=== PATIENT | female | born 1950 | race Caucasian/White ===

== ENCOUNTER 2017-12-12 12:09 | Outpatient (CLI) | payer MEDICARE, BC ==
[2017-12-12 13:24] LABS: BASOPHILS # (AUTO) 0.1 X10'3 (0-0.2); BASOPHILS % (AUTO) 1.6 % (0-1); EOSINOPHILS # (AUTO) 0.4 X10'3 (0-0.9); EOSINOPHILS % (AUTO) 7.6 % (0-6); HEMATOCRIT 37.8 % (35.0-45.0); HEMOGLOBIN 12.8 g/dl (12.0-16.0); LYMPHOCYTES # (AUTO) 1.6 X10'3 (1.1-4.8); LYMPHOCYTES % (AUTO) 33.2 % (21-51); MEAN CORPUSCULAR HEMOGLOBIN 30.8 PG (27.0-31.0); MEAN CORPUSCULAR HGB CONC 33.9 % (33.0-36.5); MEAN PLATELET VOLUME 10.3 FL (7.4-10.4); MONOCYTES # (AUTO) 0.4 X10'3 (0-0.9); MONOCYTES % (AUTO) 7.6 % (2-12); NEUTROPHILS # (AUTO) 2.4 X10'3 (1.8-7.7); PLATELET COUNT 240 X10'3 (140-440); RED BLOOD COUNT 4.15 X10'6 (4.20-5.60); RED CELL DISTRIBUTION WIDTH 13.3 % (11.5-14.5); WHITE BLOOD COUNT 4.7 X10'3 (4.5-11.0)
[2017-12-12 13:42] LABS: ALANINE AMINOTRANSFERASE 18 U/L (12-78); ALBUMIN 3.8 G/DL (3.4-5.0); ALKALINE PHOSPHATASE 64 IU/L (46-116); ANION GAP 7 (8-16); ASPARTATE AMINO TRANSFERASE 21 U/L (10-37); BILIRUBIN,TOTAL 0.5 MG/DL (0.1-1.0); BLOOD UREA NITROGEN 9 MG/DL (7-18); BUN/CREATININE RATIO 12.3 (6.6-38.0); CALCIUM 8.8 MG/DL (8.5-10.1); CHLORIDE 105 MMOL/L (99-107); CREATININE 0.73 MG/DL (0.40-0.90); GLUCOSE 91 MG/DL (70-104); SODIUM 143 MMOL/L (135-145); TOTAL PROTEIN 7.5 G/DL (6.4-8.2); eGFR 79 ML/MIN
== END 2017-12-12 23:59 | disposition home or self-care (01) ==
LOC: LAB 12:09
PROVIDERS: ATTEND Specialist
DX: Z01.818 Encounter for other preprocedural examination (principal); Z51.81 Encounter for therapeutic drug level monitoring; N39.0 Urinary tract infection, site not specified; Z87.891 Personal history of nicotine dependence
CPT/HCPCS: 36415; 80053; 85025; 85610; 87070

== ENCOUNTER 2018-04-29 10:37 | Inpatient (IN) | payer MEDICARE, BC ==
[2018-04-25 12:50] LABS: BASOPHILS % (AUTO) 0.6 % (0-1); EOSINOPHILS # (AUTO) 0.3 X10'3 (0-0.9); EOSINOPHILS % (AUTO) 5.9 % (0-6); LYMPHOCYTES # (AUTO) 1.8 X10'3 (1.1-4.8); LYMPHOCYTES % (AUTO) 33.9 % (21-51); MEAN CORPUSCULAR HEMOGLOBIN 29.2 PG (27.0-31.0); MEAN CORPUSCULAR VOLUME 88.6 FL (78-98); MEAN PLATELET VOLUME 9.9 FL (7.4-10.4); MONOCYTES # (AUTO) 0.5 X10'3 (0-0.9); MONOCYTES % (AUTO) 9.1 % (2-12); NEUTROPHILS # (AUTO) 2.8 X10'3 (1.8-7.7); NEUTROPHILS % (AUTO) 50.5 % (42-75); PRE OP HEMATOCRIT 37.6 % (35.0-45.0); PRE OP HEMOGLOBIN 12.4 g/dL (12.0-16.0); PRE OP PLATELET COUNT 266 X10'3 (140-440); RED BLOOD COUNT 4.24 X10'6 (4.20-5.60); RED CELL DISTRIBUTION WIDTH 14.6 % (11.5-14.5)
[2018-04-25 12:51] LABS: CLARITY,URINE CLEAR (Clear); COLOR,URINE YELLOW (Yellow); GLUCOSE, URINE NEGATIVE (Neg); KETONES,URINE NEGATIVE (Neg); LEUKOCYTE ESTERASE ,URINE NEGATIVE (Neg); NITRITES, URINE NEGATIVE (Neg); OCCULT BLOOD,URINE NEGATIVE (Neg); PH,URINE 5.5 (4.8-8.0); PROTEIN,URINE NEGATIVE (Neg); UROBILINOGEN,URINE 0.2 E.U/dL (0.2-1.0)
[2018-04-25 12:52] LABS: UA COLLECTION TYPE CLN CATCH MIDSTREAM
[2018-04-25 13:09] LABS: ALBUMIN 3.8 G/DL (3.4-5.0); ALKALINE PHOSPHATASE 67 IU/L (46-116); BLOOD UREA NITROGEN 11 MG/DL (7-18); BUN/CREATININE RATIO 16.7 (6.6-38.0); CALCIUM 8.6 MG/DL (8.5-10.1); CHLORIDE 102 MMOL/L (99-107); CREATININE 0.66 MG/DL (0.40-0.90); PRE OP ALT 19 U/L (30-65); PRE OP ANION GAP 6 (8-16); PRE OP AST 15 U/L (10-37); PRE OP BILIRUB, TOTAL 0.4 MG/DL (0.0-1.0); PRE OP GLUCOSE 84 MG/DL (70-104); PRE OP POTASSIUM 4.1 MMOL/L (3.4-5.1); PRE OP SODIUM 140 MMOL/L (135-145); TOTAL CARBON DIOXIDE 32.4 MMOL/L (24-32); TOTAL PROTEIN 7.6 G/DL (6.4-8.2); eGFR 89 ML/MIN
[~2018-04-29] VITALS: Ht 167.6 cm; Wt 70.4 kg
[2018-04-29] VITALS (15 sets, daily range): BP systolic 103–121; BP diastolic 50–73
[~2018-04-29 10:37] MED LIST: ALEN70TA13 PO; ATOR20TA PO; CALC600T69 PO; CHOL100046 PO; DOCU50CA13 PO; FERR-119 PO; LEVO137T24 PO; MULT-933 PO; SOTA80TA73 PO; acetaminophen 325mg tablet PO ONE; cefazolin/dext.iso 2gm/100 ML IV ONE; celeCOXIB 100mg capsule PO ONE; famotidine 20mg tablet PO ONE; gabapentin 300mg capsule PO ONE; oxyCODONE SR 10mg (sust. release) tab -2 tabs (20mg) PO ONE; ringers solution, lacted 1,000 ML IV SCH; tranexamic acid inj. 1,500 MG in normal saline 100ml IV soln 100 ML IV ONE
[2018-04-29] MEDS ORDERED: cloNIDine hcl/PF 100mcg/ml inj ONE (12:50)
[2018-04-29] MEDS ORDERED: dexamethasone sod phosphate 10mg/ml inj ONE (12:50)
[2018-04-29] MEDS ORDERED: ePHEDrine 50MG/ML INJ. ONE (12:50)
[2018-04-29] MEDS ORDERED: ROPIVAcaine 0.5% (5mg/ml) 30ml vial ONE ×2 (12:51→13:22)
[2018-04-29] MEDS ORDERED: tetracaine 1% (10mg/ml) pres. free inj. ONE (12:52)
[2018-04-29] MEDS ORDERED: BUPIVAcaine/PF 7.5mg/ml (0.75%) 10ml vial ONE (12:52)
[2018-04-29] MEDS ORDERED: morphine /PF 1mg/ml 10ml inj. ONE (12:56)
[2018-04-29] MEDS ORDERED: fentaNYL/PF 50MCG/1 ML 2ML syringe ONE (12:57)
[2018-04-29] MEDS ORDERED: MIDAZolam 5mg/5ml vial ONE (12:57)
[2018-04-29] MEDS ORDERED: bacitracin inj 150,000 UNIT in sodium chloride irrig. sol 3,000 ML IR ONE (13:00)
[2018-04-29] MEDS ORDERED: propofol inj 20 ML IV ONE (13:27)
[2018-04-29] MEDS ORDERED: LIDOcaine 1%/PF 5ML 10 MG/ML VIAL ONE (13:27)
[2018-04-29] MEDS ORDERED: diphenhydrAMINE 50 mg/ml inj ONE (13:44)
[2018-04-29] MEDS ORDERED: ceFAZolin 1000mg inj ONE (14:34)
[2018-04-29] MEDS ORDERED: meperidine/PF 25mg/ml syringe IV PRN ×3 (14:40)
[2018-04-29] MEDS ORDERED: diphenhydrAMINE 50 mg/ml inj IV PRN (14:40)
[2018-04-29] MEDS ORDERED: ondansetron/PF 4mg/2ml inj IV PRN ×2 (14:40)
[2018-04-29] MEDS ORDERED: naloxone 2mg/2ml inj 1.4 MG in normal saline 500ml IV soln 500 ML IV PRN (14:40)
[2018-04-29] MEDS ORDERED: morphine 4 MG/ML inj SYRINge IV PRN ×2 (14:40)
[2018-04-29] MEDS ORDERED: ringers solution, lacted 1,000 ML IV SCH (14:40)
[2018-04-29] MEDS ORDERED: proCHLORperazine 10 MG/2 ml inj IV PRN (14:40)
[2018-04-29] MEDS ORDERED: oxyCODONE/APAP 10/325mg tablet PO PRN (15:25)
[2018-04-29] MEDS ORDERED: bisacodyl 10mg suppository rectal RC PRN (15:25)
[2018-04-29] MEDS ORDERED: acetaminophen 325mg tablet PO PRN (15:25)
[2018-04-29] MEDS ORDERED: HYDROmorphone 1 mg/ml syringe IV PRN (15:25)
[2018-04-29] MEDS ORDERED: magnesium hydroxide 30ml (MOM) UD suspension PO PRN (15:25)
[2018-04-29] MEDS ORDERED: diphenhydrAMINE 25mg capsule PO PRN ×2 (15:25)
[2018-04-29] MEDS: potassium cl 20mEq in 1/2 NS 1,000 ML IV SCH ×2 (17:18→23:49)
[2018-04-29] MEDS: ondansetron/PF 4mg/2ml inj IV PRN (18:18)
[2018-04-29] MEDS: ceFAZolin 1GM/D5W- ADD-VANTAGE 50 ML IV SCH ×2 (19:32→23:49)
[2018-04-29] MEDS: ascorbic acid 500mg tablet PO SCH (21:05)
[2018-04-29] MEDS: gabapentin 300mg capsule PO SCH (21:05)
[2018-04-29] MEDS: atorvastatin 20mg tablet PO SCH (21:05)
[2018-04-29] MEDS: sennosides 8.6mg tablet PO SCH (21:06)
[2018-04-29] MEDS: sotalol 80mg tablet PO SCH (21:08)
[2018-04-29] MEDS: oxyCODONE/APAP 10/325mg tablet PO PRN (23:50)
[2018-04-30 02:00] VITALS: BP 98/49
[2018-04-30] MEDS: oxyCODONE/APAP 10/325mg tablet PO PRN ×4 (05:12→20:03)
[2018-04-30 06:05] LABS: BASOPHILS % (AUTO) 0.3 % (0-1); EOSINOPHILS # (AUTO) 0.1 X10'3 (0-0.9); HEMATOCRIT 30.5 % (35.0-45.0); HEMOGLOBIN 10.2 g/dl (12.0-16.0); LYMPHOCYTES % (AUTO) 11.7 % (21-51); MEAN CORPUSCULAR HEMOGLOBIN 29.5 PG (27.0-31.0); MEAN CORPUSCULAR HGB CONC 33.2 % (33.0-36.5); MEAN CORPUSCULAR VOLUME 88.7 FL (78-98); MEAN PLATELET VOLUME 10.1 FL (7.4-10.4); MONOCYTES # (AUTO) 0.5 X10'3 (0-0.9); MONOCYTES % (AUTO) 6.6 % (2-12); NEUTROPHILS # (AUTO) 6.7 X10'3 (1.8-7.7); NEUTROPHILS % (AUTO) 80.4 % (42-75); PLATELET COUNT 209 X10'3 (140-440); RED BLOOD COUNT 3.44 X10'6 (4.20-5.60); RED CELL DISTRIBUTION WIDTH 14.5 % (11.5-14.5); WHITE BLOOD COUNT 8.3 X10'3 (4.5-11.0)
[2018-04-30 06:18] LABS: ANION GAP 6 (8-16); CHLORIDE 103 MMOL/L (99-107); POTASSIUM 4.5 MMOL/L (3.5-5.1); SODIUM 137 MMOL/L (135-145); TOTAL CARBON DIOXIDE 28.5 MMOL/L (24-32)
[2018-04-30 06:22] LABS: INR 1.1 INR; PROTHROMBIN TIME 11.2 SECONDS (9.0-12.0)
[2018-04-30] MEDS: levoTHYROXINE 112mcg tablet PO SCH (07:23)
[2018-04-30] MEDS: levoTHYROXINE 25mcg tablet PO SCH (07:23)
[2018-04-30] MEDS: gabapentin 300mg capsule PO SCH ×3 (07:23→20:02)
[2018-04-30] MEDS: ascorbic acid 500mg tablet PO SCH ×2 (07:24→20:02)
[2018-04-30] MEDS: multivitamins, therapeutics tablet PO SCH (07:24)
[2018-04-30] MEDS: sotalol 80mg tablet PO SCH ×2 (07:26→23:01)
[2018-04-30] MEDS ORDERED: non-formulary drug (Levothyroxine Sodium (Synthroid) 1 TAB) PO SCH (08:00)
[2018-04-30] MEDS: potassium cl 20mEq in 1/2 NS 1,000 ML IV SCH (09:35)
[2018-04-30] MEDS ORDERED: warfarin 10mg tablet PO ONE (10:00)
[2018-04-30] MEDS: ondansetron/PF 4mg/2ml inj IV PRN (13:00)
[2018-04-30 18:00] VITALS: BP 113/46
[2018-04-30] MEDS ORDERED: lactose-reduced food (Ensure High Protein) 237ml bottle PO SCH (18:00)
[2018-04-30] MEDS: atorvastatin 20mg tablet PO SCH (20:02)
[2018-04-30] MEDS: celeCOXIB 100mg capsule PO SCH (20:02)
[2018-04-30] MEDS: sennosides 8.6mg tablet PO SCH (20:03)
[2018-04-30 22:00] VITALS: BP 123/57
[2018-05-01] MEDS: oxyCODONE/APAP 10/325mg tablet PO PRN (04:41)
[2018-05-01 06:11] LABS: BASOPHILS % (AUTO) 0.2 % (0-1); EOSINOPHILS # (AUTO) 0.1 X10'3 (0-0.9); EOSINOPHILS % (AUTO) 1.5 % (0-6); HEMATOCRIT 28.1 % (35.0-45.0); HEMOGLOBIN 9.2 g/dl (12.0-16.0); LYMPHOCYTES # (AUTO) 0.9 X10'3 (1.1-4.8); LYMPHOCYTES % (AUTO) 12.7 % (21-51); MEAN CORPUSCULAR HEMOGLOBIN 29.1 PG (27.0-31.0); MEAN CORPUSCULAR HGB CONC 32.8 % (33.0-36.5); MEAN CORPUSCULAR VOLUME 88.7 FL (78-98); MEAN PLATELET VOLUME 10.2 FL (7.4-10.4); MONOCYTES # (AUTO) 0.5 X10'3 (0-0.9); MONOCYTES % (AUTO) 7.7 % (2-12); NEUTROPHILS # (AUTO) 5.3 X10'3 (1.8-7.7); NEUTROPHILS % (AUTO) 77.9 % (42-75); PLATELET COUNT 189 X10'3 (140-440); RED BLOOD COUNT 3.17 X10'6 (4.20-5.60); RED CELL DISTRIBUTION WIDTH 14.3 % (11.5-14.5); WHITE BLOOD COUNT 6.8 X10'3 (4.5-11.0)
[2018-05-01 06:41] LABS: INR 1.7 INR; PROTHROMBIN TIME 16.7 SECONDS (9.0-12.0)
[2018-05-01] MEDS: levoTHYROXINE 112mcg tablet PO SCH (07:13)
[2018-05-01] MEDS: levoTHYROXINE 25mcg tablet PO SCH (07:13)
[2018-05-01] MEDS: celeCOXIB 100mg capsule PO SCH (07:14)
[2018-05-01] MEDS: sotalol 80mg tablet PO SCH (07:14)
[2018-05-01] MEDS: gabapentin 300mg capsule PO SCH (07:14)
[2018-05-01] MEDS: multivitamins, therapeutics tablet PO SCH (07:14)
[2018-05-01] MEDS: ascorbic acid 500mg tablet PO SCH (07:15)
[2018-05-01] MEDS ORDERED: ASPI-1264 PO (08:13)
[2018-05-01] MEDS ORDERED: warfarin 1mg tablet PO ONE (10:00)
[2018-05-01] MEDS ORDERED: acetaminophen 325mg tablet PO PRN (15:25)
== END 2018-05-01 11:14 | disposition home health service (06) | DRG 470 ==
LOC: PAS IN 11:21 → EDSTATUS 13:30 → ORTHO 4S 17:10
PROVIDERS: ADMIT Specialist; ATTEND Specialist
PROC: 3E0T3BZ Introduction of Anesthetic Agent into Peripheral Nerves and Plexi, Percutaneous Approach (ICD-10-PCS; 2018-04-29)
PROC: 0SRC0J9 Replacement of Right Knee Joint with Synthetic Substitute, Cemented, Open Approach (ICD-10-PCS; principal; 2018-04-29 12:59)
DX: M17.11 Unilateral primary osteoarthritis, right knee (principal); D62 Acute posthemorrhagic anemia; E03.9 Hypothyroidism, unspecified; E78.5 Hyperlipidemia, unspecified; I25.10 Atherosclerotic heart disease of native coronary artery without angina pectoris; Z96.652 Presence of left artificial knee joint; M81.0 Age-related osteoporosis without current pathological fracture; Z79.899 Other long term (current) drug therapy; Z79.82 Long term (current) use of aspirin; Z87.891 Personal history of nicotine dependence
CPT/HCPCS: 36415; 73560; 80051; 80053; 81003; 84443; 85025; 85610; 85730; 87070; 97110; 97116; 97162; 97530; A6257; A6449; A6455; A7000; C1713; C1758; C1776; G0378; J0690; J0735; J1100; J1170; J1200; J2001; J2250; J2274; J2405; J2704; J2795; J3010; J3490; J7030; J7120

== ENCOUNTER 2023-07-17 23:54 | Inpatient (IN) | payer MEDICARE, BC ==
[~2023-07-17] VITALS: Ht 167.6 cm; Wt 74.0 kg
[~2023-07-17 23:54] MED LIST changes: -ALEN70TA13 PO; +ALEN70TA80 PO; -acetaminophen 325mg tablet PO ONE; -cefazolin/dext.iso 2gm/100 ML IV ONE; -celeCOXIB 100mg capsule PO ONE; -famotidine 20mg tablet PO ONE; -gabapentin 300mg capsule PO ONE; -oxyCODONE SR 10mg (sust. release) tab -2 tabs (20mg) PO ONE; -ringers solution, lacted 1,000 ML IV SCH; -tranexamic acid inj. 1,500 MG in normal saline 100ml IV soln 100 ML IV ONE
[2023-07-18 00:19] LABS: EOSINOPHILS % (AUTO) 4.6 % (0-6); HEMATOCRIT 37.6 % (35.0-45.0); HEMOGLOBIN 12.5 g/dl (12.0-16.0); LYMPHOCYTES # (AUTO) 1.2 X10'3 (1.1-4.8); LYMPHOCYTES % (AUTO) 24.3 % (21-51); MEAN CORPUSCULAR HEMOGLOBIN 30.5 PG (27.0-31.0); MEAN CORPUSCULAR HGB CONC 33.3 g/dL (33.0-36.5); MEAN CORPUSCULAR VOLUME 91.4 FL (78-98); MEAN PLATELET VOLUME 9.8 FL (7.4-10.4); MONOCYTES # (AUTO) 0.4 X10'3 (0-0.9); MONOCYTES % (AUTO) 7.7 % (2-12); NEUTROPHILS # (AUTO) 3.1 X10'3 (1.8-7.7); NEUTROPHILS % (AUTO) 62.4 % (42-75); PLATELET COUNT 224 X10'3 (140-440); RED BLOOD COUNT 4.11 X10'6 (4.20-5.60)
[2023-07-18 00:20] LABS: EOSINOPHILS # (AUTO) 0.2 X10'3 (0-0.9)
[2023-07-18 00:30] LABS: ALANINE AMINOTRANSFERASE 16 U/L (12-78); ALBUMIN 3.6 G/DL (3.4-5.0); ALKALINE PHOSPHATASE 78 IU/L (46-116); ANION GAP 8 (8-16); ASPARTATE AMINO TRANSFERASE 16 U/L (10-37); BILIRUBIN,TOTAL 0.2 MG/DL (0.1-1.0); BLOOD UREA NITROGEN 15 MG/DL (7-18); BUN/CREATININE RATIO 20.3 (10.0-20.0); CALCIUM 8.5 MG/DL (8.5-10.1); CHLORIDE 103 MMOL/L (99-107); CREATININE 0.74 MG/DL (0.40-0.90); GLUCOSE 143 MG/DL (70-104); POTASSIUM 3.5 MMOL/L (3.5-5.1); SODIUM 138 MMOL/L (135-145); TOTAL PROTEIN 7.2 G/DL (6.4-8.2); eCRCL 62 ML/MIN; eGFR 77 ML/MIN
[2023-07-18 00:40] LABS: PRO BRAIN NATRIURETIC PEPTIDE 196 PG/ML (0-125)
[2023-07-18] MEDS: acetaminophen 325mg tablet PO ONE (01:19)
[2023-07-18] MEDS ORDERED: magnesium 2GM in 50ml NS 50 ML IV PRN (02:40)
[2023-07-18] MEDS ORDERED: potassium Cl 20 mEq SR tablet PO PRN ×2 (02:40)
[2023-07-18] MEDS ORDERED: potassium Cl 40MEQ/1/2NS 520ml 520 ML IV PRN (02:40)
[2023-07-18] MEDS ORDERED: ondansetron/PF 4mg/2ml inj IV PRN (02:40)
[2023-07-18] MEDS ORDERED: acetaminophen 325mg tablet PO PRN (02:40)
[2023-07-18] MEDS ORDERED: magnesium 4gm in 100ml NS 100 ML IV PRN (02:40)
[2023-07-18] MEDS ORDERED: magnesium Cl slow-release 64mg tablet PO PRN (02:40)
[2023-07-18 03:01] LABS: BILIRUBIN,URINE NEGATIVE (Neg); CLARITY,URINE SLIGHTLY CLOUDY (Clear); COLOR,URINE STRAW (Yellow); GLUCOSE, URINE NEGATIVE (Neg); KETONES,URINE NEGATIVE (Neg); LEUKOCYTE ESTERASE ,URINE MODERATE (Neg); NITRITES, URINE NEGATIVE (Neg); OCCULT BLOOD,URINE NEGATIVE (Neg); PROTEIN,URINE NEGATIVE (Neg); UROBILINOGEN,URINE 0.2 E.U/dL (0.2-1.0)
[2023-07-18 03:15] LABS: UA COLLECTION TYPE CLN CATCH MIDSTREAM
[2023-07-18 03:16] LABS: MUCUS STRANDS NONE SEEN /LPF (Neg); SQUAMOUS EPITHELIAL CELL,UR MODERATE /LPF (FEW)
[2023-07-18 03:23] LABS: BACTERIA,URINE 1+ /HPF (Neg); RBC,URINE 0-2 /HPF (0-2); TRANSITIONAL EPI CELLS,URINE FEW /HPF; WBC,URINE 0-4 /HPF (0-4)
[2023-07-18] MEDS: normal saline 1000ml 1,000 ML IV SCH (03:36)
[2023-07-18 04:26] LABS: HEMOGLOBIN A1C 5.7 % (4.5-6.2)
[2023-07-18 04:33] LABS: THYROID STIMULATING HORMONE 4.55 ulU/ml (0.34-4.50)
[2023-07-18] MEDS ORDERED: diltiazem-D5W 125mg/125ml 125 ML IV ONE (04:35)
[2023-07-18] MEDS: diltiazem-NS 100mg/100ml 100 ML IV SCH (04:35)
[2023-07-18] MEDS: levoTHYROXINE 25mcg tablet PO SCH (07:56)
[2023-07-18] MEDS: levoTHYROXINE 112mcg tablet PO SCH (07:56)
[2023-07-18] MEDS: sotalol HCl 40mg (1/2 tablet) PO SCH (07:56)
[2023-07-18] MEDS ORDERED: ondansetron 4mg rapidly disintigrating tab PO PRN (15:50)
[2023-07-18 16:30] VITALS: BP 162/83; PULSE 75; RESP 12; O2SAT 96
[2023-07-18 18:56] VITALS: BP 155/67; PULSE 76; RESP 17; TEMP 97.8; O2SAT 95
[2023-07-18] MEDS: enoxaparin 40mg/0.4ml syringe SQ SCH (19:18)
[2023-07-18 20:00] VITALS: RESP 17; O2SAT 95
[2023-07-18] MEDS: atorvastatin 20mg tablet PO SCH (20:26)
[2023-07-18 22:00] VITALS: BP_SYST 141; BP_SYST 146; BP_SYST 159; BP_DIAS 70; BP_DIAS 77; BP_DIAS 82; PULSE 69; PULSE 73; PULSE 84; RESP 19; TEMP 97.7; O2SAT 97
[2023-07-19 02:46] VITALS: BP 133/78; PULSE 65; RESP 17; TEMP 97.5; O2SAT 99
[2023-07-19 06:00] VITALS: BP 144/78; PULSE 78; RESP 17; TEMP 97.2; O2SAT 97
[2023-07-19] MEDS: acetaminophen 325mg tablet PO PRN (06:27)
[2023-07-19 08:00] VITALS: BP_SYST 135; BP_SYST 143; BP_SYST 154; BP_DIAS 61; BP_DIAS 63; BP_DIAS 64; PULSE 70; PULSE 71; PULSE 75; RESP 17; O2SAT 97
[2023-07-19 08:36] LABS: BASOPHILS # (AUTO) 0.1 X10'3 (0-0.2); BASOPHILS % (AUTO) 1.2 % (0-1); EOSINOPHILS # (AUTO) 0.2 X10'3 (0-0.9); EOSINOPHILS % (AUTO) 3.9 % (0-6); HEMOGLOBIN 12.9 g/dl (12.0-16.0); LYMPHOCYTES # (AUTO) 1.6 X10'3 (1.1-4.8); LYMPHOCYTES % (AUTO) 26.8 % (21-51); MEAN CORPUSCULAR HEMOGLOBIN 30.2 PG (27.0-31.0); MEAN CORPUSCULAR HGB CONC 33.2 g/dL (33.0-36.5); MEAN CORPUSCULAR VOLUME 91.2 FL (78-98); MEAN PLATELET VOLUME 10.8 FL (7.4-10.4); MONOCYTES # (AUTO) 0.5 X10'3 (0-0.9); MONOCYTES % (AUTO) 8.9 % (2-12); NEUTROPHILS # (AUTO) 3.4 X10'3 (1.8-7.7); NEUTROPHILS % (AUTO) 59.2 % (42-75); PLATELET COUNT 214 X10'3 (140-440); RED BLOOD COUNT 4.27 X10'6 (4.20-5.60); RED CELL DISTRIBUTION WIDTH 14.2 % (11.5-14.5); WHITE BLOOD COUNT 5.8 X10'3 (4.5-11.0)
[2023-07-19 08:54] LABS: ALANINE AMINOTRANSFERASE 16 U/L (12-78); ALBUMIN 3.3 G/DL (3.4-5.0); ALBUMIN/GLOBULIN RATIO 0.9 (1.1-1.5); ALKALINE PHOSPHATASE 69 IU/L (46-116); ANION GAP 7 (8-16); ASPARTATE AMINO TRANSFERASE 18 U/L (10-37); BILIRUBIN,TOTAL 0.6 MG/DL (0.1-1.0); BLOOD UREA NITROGEN 11 MG/DL (7-18); BUN/CREATININE RATIO 17.7 (10.0-20.0); CALCIUM 8.4 MG/DL (8.5-10.1); CHLORIDE 106 MMOL/L (99-107); CREATININE 0.62 MG/DL (0.40-0.90); FREE T4 (FREE THYROXINE) 1.19 NG/DL (0.73-1.40); GLUCOSE 95 MG/DL (70-104); POTASSIUM 3.7 MMOL/L (3.5-5.1); SODIUM 140 MMOL/L (135-145); TOTAL CARBON DIOXIDE 27.4 MMOL/L (24-32); eCRCL 75 ML/MIN; eGFR > 90 ML/MIN
[2023-07-19 11:00] VITALS: BP 130/74; PULSE 64; RESP 14; TEMP 97.7; O2SAT 97
== END 2023-07-19 13:20 | disposition home or self-care (01) | DRG 310 ==
LOC: ER 23:55 → ED HOLD 07-18 02:49 → UNDOADMIN 07-18 02:49 → PCU 3S 07-18 18:54
PROVIDERS: ADMIT Internal Medicine; ATTEND Internal Medicine
DX: I49.9 Cardiac arrhythmia, unspecified (principal); E03.9 Hypothyroidism, unspecified; E78.5 Hyperlipidemia, unspecified; Z79.899 Other long term (current) drug therapy
CPT/HCPCS: 36415; 70450; 70551; 71045; 80053; 81001; 83036; 83880; 84439; 84443; 84484; 85025; 87081; 87088; 92508; 92616; 93005; 93306; 93880; 99285; G0378; J1650; J7030